=== PATIENT | male | born 1955 | race Caucasian/White ===

== ENCOUNTER → 2017-02-03 | Outpatient (CLI) | payer BC, MEDICARE ==
[~2017-02-03] MED LIST: ASPI-496 PO; ATOR40TA78 PO; CARV12.52 PO; CLOP75TA PO; FURO-93 PO; KRIL1CAP22 PO; LISI-167 PO; POTA10TA5 PO
== END | disposition home or self-care (01) ==
LOC: CVU 12:41
PROVIDERS: ATTEND Internal Medicine Cardiovascular Disease
DX: I25.5 Ischemic cardiomyopathy (principal); Z79.02 Long term (current) use of antithrombotics/antiplatelets; I10 Essential (primary) hypertension; I25.2 Old myocardial infarction; Z95.810 Presence of automatic (implantable) cardiac defibrillator
CPT/HCPCS: C8929

== ENCOUNTER → 2017-05-30 | Outpatient (CLI) | payer BC, MEDICARE | END | disposition home or self-care (01) | LOC: CFH 11:31 | PROVIDERS: ATTEND Internal Medicine Cardiovascular Disease | DX: I50.9 Heart failure, unspecified (principal); I51.7 Cardiomegaly; M47.894 Other spondylosis, thoracic region | CPT/HCPCS: 71020 ==

== ENCOUNTER → 2017-07-29 | Outpatient (CLI) | payer BC, MEDICARE | END | disposition home or self-care (01) | LOC: CFH 09:50 | PROVIDERS: ATTEND Nurse Practitioner Primary Care | DX: M25.462 Effusion, left knee (principal); I48.91 Unspecified atrial fibrillation; I10 Essential (primary) hypertension; I25.2 Old myocardial infarction ==

== ENCOUNTER → 2017-08-08 | Outpatient (CLI) | payer MEDICARE | END | disposition home or self-care (01) | LOC: CFH 08:28 | PROVIDERS: ATTEND Nurse Practitioner Primary Care | DX: M17.12 Unilateral primary osteoarthritis, left knee (principal) ==

== ENCOUNTER → 2018-06-30 | Outpatient (CLI) | payer MEDICARE | END | disposition home or self-care (01) | LOC: CFH 11:03 | PROVIDERS: ATTEND Nurse Practitioner Family | DX: I11.0 Hypertensive heart disease with heart failure (principal); I50.9 Heart failure, unspecified; I71.2 Thoracic aortic aneurysm, without rupture; Z95.0 Presence of cardiac pacemaker; Z85.51 Personal history of malignant neoplasm of bladder; Z85.820 Personal history of malignant melanoma of skin; Z87.891 Personal history of nicotine dependence | CPT/HCPCS: 71046 ==

== ENCOUNTER → 2018-09-15 | Outpatient (CLI) | payer MEDICARE ==
[~2018-09-15] MED LIST changes: +AMIO200T42 PO; +ASPI-515 PO; +DOCU-131 PO; +FURO40TA6 PO; +OMEG1CAP6 PO; +POTA20TA6 PO
== END | disposition home or self-care (01) ==
LOC: CFH 11:41
PROVIDERS: ATTEND Nurse Practitioner Primary Care
DX: R91.8 Other nonspecific abnormal finding of lung field (principal)
CPT/HCPCS: 71046

== ENCOUNTER 2018-09-16 03:17 | Inpatient (IN) | payer MEDICARE ==
[~2018-09-16] VITALS: Ht 188 cm; Wt 70.2 kg
[~2018-09-16 03:17] MED LIST changes: -AMIO200T42 PO; -ASPI-515 PO; -DOCU-131 PO; -FURO40TA6 PO; -OMEG1CAP6 PO; -POTA20TA6 PO
[2018-09-16 03:47] LABS: BASOPHILS # (AUTO) 0.03 x10^3/uL (0-0.1); BASOPHILS % (AUTO) 0 % (0-1); EOSINOPHILS % (AUTO) 3 % (1-7); LYMPHOCYTES # (AUTO) 1.61 x10^3/uL (1-3.4); LYMPHOCYTES % (AUTO) 21 % (22-44); MD NO; MEAN CORPUSCULAR HEMOGLOBIN 32.6 pg (27.5-34.5); MEAN CORPUSCULAR HGB CONC 34.2 g/dL (33.2-36.2); MEAN CORPUSCULAR VOLUME 95.3 fL (81-97); MEAN PLATELET VOLUME 9.5 fL (7.4-10.4); MONOCYTES # (AUTO) 0.55 x10^3/uL (0.2-0.8); MONOCYTES % (AUTO) 7 % (2-9); NEUTROPHILS # (AUTO) 5.32 x10^3/uL (1.8-6.8); NEUTROPHILS % (AUTO) 69 % (42-75); PLATELET COUNT 184 x10^3/uL (130-400); RED BLOOD COUNT 3.69 x10^6/uL (4.38-5.82); RED CELL DISTRIBUTION WIDTH 13.3 % (9.4-14.8)
[2018-09-16 04:01] LABS: ANION GAP 10 mmol/L (5-15); CALCIUM 7.9 mg/dL (8.5-10.1); CHLORIDE 112 mmol/L (98-107); CREATININE 0.83 mg/dL (0.7-1.3)
[2018-09-16] MEDS ORDERED: CEFTRIAXONE PMX 1GM/50ML 50 ML IV ONE (04:30)
[2018-09-16] MEDS ORDERED: AZITHROMYCIN 500 MG in SODIUM CHLORIDE 0.9% 250 ML IV ONE (04:30)
[2018-09-16] MEDS ORDERED: CEFTRIAXONE PMX 1GM/50ML 50 ML ONE (04:50)
[2018-09-16] MEDS ORDERED: hydrALAzine 20 MG/ML, 1ML IVPush PRN (05:00)
[2018-09-16] MEDS ORDERED: PROMETHAZINE 25 MG/ML, 1ML IM PRN (05:00)
[2018-09-16] MEDS ORDERED: GABAPENTIN 300 MG CAPSULE PO PRN (05:00)
[2018-09-16] MEDS ORDERED: OXYcodone IR 5MG TABLET PO PRN (05:00)
[2018-09-16] MEDS ORDERED: POLYETHYLENE GLYCOL 17 GM PACKET PO PRN (05:00)
[2018-09-16] MEDS ORDERED: DOCUSATE 100 MG CAPSULE PO PRN (05:00)
[2018-09-16] MEDS ORDERED: ACETAMINOPHEN 325 MG TABLET PO PRN (05:00)
[2018-09-16] MEDS ORDERED: ONDANSETRON ODT 4 MG PO PRN (05:00)
[2018-09-16] MEDS ORDERED: LABETALOL 5MG/ML, 20ML IVPush PRN (05:00)
[2018-09-16] MEDS ORDERED: morphine SULFATE 10 MG/ML, 1ML IVPush PRN (05:00)
[2018-09-16] MEDS ORDERED: ONDANSETRON 2MG/ML, 2ML IVPush PRN (05:00)
[2018-09-16] MEDS ORDERED: BISACODYL 10 MG SUPP PR PRN (05:00)
[2018-09-16 05:23] VITALS: BP 154/92
[2018-09-16 05:26] LABS: FREE T4 (FREE THYROXINE) 1.66 ng/dL (0.76-1.46); THYROID STIMULATING HORMONE 2.35 mIU/L (0.358-3.740)
[2018-09-16 05:27] LABS: HEMOGLOBIN A1C 5.7 % (4.2-6.3)
[2018-09-16] MEDS ORDERED: FUROSEMIDE 20 MG/2 ML IV ONE (05:30)
[2018-09-16] MEDS: ENOXAPARIN 40 MG/0.4 ML SQ SCH (06:18)
[2018-09-16 07:18] VITALS: BP 140/86
[2018-09-16 07:30] LABS: TROPONIN I < 0.015 ng/mL (0.000-0.045)
[2018-09-16] MEDS: FUROSEMIDE 20 MG/2 ML IV SCH ×2 (08:11→17:33)
[2018-09-16] MEDS: OMEGA-3/FISH OIL CAPSULE PO SCH (08:12)
[2018-09-16] MEDS: CLOPIDOGREL 75 MG TABLET PO SCH (08:13)
[2018-09-16] MEDS: CARVEDILOL 12.5 MG TABLET PO SCH ×2 (08:13→21:09)
[2018-09-16] MEDS: ASPIRIN 81 MG TABLET CHEW PO SCH (08:13)
[2018-09-16] MEDS: LISINOPRIL 10 MG TABLET PO SCH (08:13)
[2018-09-16 08:56] LABS: MICROSCOPIC NOT IND
[2018-09-16 08:58] LABS: CULTURE INDICATED? NO
[2018-09-16 11:26] VITALS: BP 114/74
[2018-09-16] MEDS ORDERED: OMNIPAQUE 350 MG/ML, 100ML BOTTLE ONE (11:30)
[2018-09-16 13:41] LABS: TROPONIN I < 0.015 ng/mL (0.000-0.045)
[2018-09-16 14:45] VITALS: BP 129/81
[2018-09-16] MEDS: POTASSIUM CHLORIDE 20 MEQ TAB.ER.PRT PO SCH (17:32)
[2018-09-16] MEDS: GUAIFENESIN/COD200MG-20MG/10ML LIQUID PO PRN ×2 (17:40→23:45)
[2018-09-16 20:12] VITALS: BP 145/83
[2018-09-16] MEDS: ATORVASTATIN 40 MG TABLET PO SCH (21:09)
[2018-09-17 02:53] VITALS: BP 119/73
[2018-09-17 05:43] LABS: BASOPHILS # (AUTO) 0.03 x10^3/uL (0-0.1); BASOPHILS % (AUTO) 0 % (0-1); EOSINOPHILS % (AUTO) 1 % (1-7); LYMPHOCYTES # (AUTO) 1.65 x10^3/uL (1-3.4); LYMPHOCYTES % (AUTO) 17 % (22-44); MD NO; MEAN CORPUSCULAR HEMOGLOBIN 32.6 pg (27.5-34.5); MEAN CORPUSCULAR HGB CONC 34.2 g/dL (33.2-36.2); MEAN CORPUSCULAR VOLUME 95.2 fL (81-97); MEAN PLATELET VOLUME 10.1 fL (7.4-10.4); MONOCYTES # (AUTO) 0.82 x10^3/uL (0.2-0.8); MONOCYTES % (AUTO) 8 % (2-9); NEUTROPHILS # (AUTO) 7.24 x10^3/uL (1.8-6.8); NEUTROPHILS % (AUTO) 74 % (42-75); PLATELET COUNT 215 x10^3/uL (130-400); RED BLOOD COUNT 3.94 x10^6/uL (4.38-5.82); RED CELL DISTRIBUTION WIDTH 13.4 % (9.4-14.8)
[2018-09-17 05:49] LABS: CHLORIDE 109 mmol/L (98-107)
[2018-09-17] MEDS: ENOXAPARIN 40 MG/0.4 ML SQ SCH (05:53)
[2018-09-17 05:55] LABS: ALANINE AMINOTRANSFERASE 36 U/L (12-78); ALBUMIN 3.1 g/dL (3.4-5.0); ALKALINE PHOSPHATASE 67 U/L (45-117); ANION GAP 12 mmol/L (5-15); BILIRUBIN,TOTAL 1.1 mg/dL (0.2-1.0); CALCIUM 8.3 mg/dL (8.5-10.1); CHOL/HDL RATIO 3.6; CHOLESTEROL, TOTAL 105 mg/dL (140-239); CREATININE 0.85 mg/dL (0.7-1.3); HDL CHOL % 28 % (26-37); HDL CHOLESTEROL (DIRECT) 29 mg/dL (40-60); LDL CHOLESTEROL,CALCULATED 63 mg/dL (54-169); LDL/HDL RATIO 2.2 (0.5-3.0); TOTAL PROTEIN 7.5 g/dL (6.4-8.2); TRIGLYCERIDES 65 mg/dL (50-200); VLDL CHOLESTEROL 13 mg/dL (0-25)
[2018-09-17 07:32] VITALS: BP 122/76
[2018-09-17] MEDS: FUROSEMIDE 20 MG/2 ML IV SCH (08:22)
[2018-09-17] MEDS ORDERED: AMIO200T42 PO (08:26)
[2018-09-17] MEDS: ASPIRIN 81 MG TABLET CHEW PO SCH (08:30)
[2018-09-17] MEDS: POTASSIUM CHLORIDE 20 MEQ TAB.ER.PRT PO SCH ×2 (08:30→17:43)
[2018-09-17] MEDS: CARVEDILOL 12.5 MG TABLET PO SCH ×2 (08:31→19:34)
[2018-09-17] MEDS: CLOPIDOGREL 75 MG TABLET PO SCH (08:32)
[2018-09-17] MEDS: LISINOPRIL 10 MG TABLET PO SCH (08:33)
[2018-09-17] MEDS: OMEGA-3/FISH OIL CAPSULE PO SCH (08:34)
[2018-09-17] MEDS ORDERED: FUROSEMIDE 20 MG/2 ML IV ONE (11:00)
[2018-09-17 11:43] VITALS: BP 129/81
[2018-09-17] MEDS: GUAIFENESIN/COD200MG-20MG/10ML LIQUID PO PRN ×3 (11:45→19:34)
[2018-09-17 14:26] VITALS: BP 132/79
[2018-09-17] MEDS: FUROSEMIDE 40 MG/4 ML IV SCH (17:43)
[2018-09-17 17:44] VITALS: BP 134/90
[2018-09-17 18:51] VITALS: BP 122/77
[2018-09-17] MEDS: AMIODARONE 200 MG TABLET PO SCH (19:34)
[2018-09-17] MEDS: ATORVASTATIN 40 MG TABLET PO SCH (19:34)
[2018-09-18 00:33] VITALS: BP_SYST 109; BP_SYST 136; BP_DIAS 68; BP_DIAS 77
[2018-09-18] MEDS: ENOXAPARIN 40 MG/0.4 ML SQ SCH (05:31)
[2018-09-18 05:52] LABS: ANION GAP 9 mmol/L (5-15); CALCIUM 8.9 mg/dL (8.5-10.1); CHLORIDE 106 mmol/L (98-107); CREATININE 0.87 mg/dL (0.7-1.3)
[2018-09-18 06:31] VITALS: BP 109/72
[2018-09-18] MEDS: FUROSEMIDE 40 MG/4 ML IV SCH ×2 (07:55→20:46)
[2018-09-18] MEDS: POTASSIUM CHLORIDE 20 MEQ TAB.ER.PRT PO SCH ×2 (07:56→20:46)
[2018-09-18] MEDS: CARVEDILOL 12.5 MG TABLET PO SCH ×2 (07:56→20:48)
[2018-09-18] MEDS: LISINOPRIL 10 MG TABLET PO SCH (07:56)
[2018-09-18] MEDS: CLOPIDOGREL 75 MG TABLET PO SCH (07:56)
[2018-09-18] MEDS: ASPIRIN 81 MG TABLET CHEW PO SCH (07:56)
[2018-09-18] MEDS: OMEGA-3/FISH OIL CAPSULE PO SCH (07:57)
[2018-09-18 08:05] VITALS: BP 114/75
[2018-09-18 12:38] VITALS: BP 111/75
[2018-09-18 17:55] VITALS: BP 116/72
[2018-09-18 20:27] VITALS: BP 109/69
[2018-09-18] MEDS: AMIODARONE 200 MG TABLET PO SCH (20:48)
[2018-09-18] MEDS: ATORVASTATIN 40 MG TABLET PO SCH (21:04)
[2018-09-18] MEDS: GUAIFENESIN/COD200MG-20MG/10ML LIQUID PO PRN (21:40)
[2018-09-19 01:17] VITALS: BP 91/54
[2018-09-19 01:34] VITALS: BP 91/54
[2018-09-19 01:35] VITALS: BP 93/61
[2018-09-19 05:06] VITALS: BP 106/74
[2018-09-19] MEDS: ENOXAPARIN 40 MG/0.4 ML SQ SCH (05:06)
[2018-09-19 07:49] VITALS: BP 111/65
[2018-09-19] MEDS: LISINOPRIL 10 MG TABLET PO SCH (09:00)
[2018-09-19] MEDS: CLOPIDOGREL 75 MG TABLET PO SCH (09:14)
[2018-09-19] MEDS: OMEGA-3/FISH OIL CAPSULE PO SCH (09:14)
[2018-09-19] MEDS: POTASSIUM CHLORIDE 20 MEQ TAB.ER.PRT PO SCH (09:14)
[2018-09-19] MEDS: CARVEDILOL 12.5 MG TABLET PO SCH (09:14)
[2018-09-19] MEDS: FUROSEMIDE 40 MG/4 ML IV SCH (09:14)
[2018-09-19] MEDS: ASPIRIN 81 MG TABLET CHEW PO SCH (09:15)
[2018-09-19] MEDS ORDERED: DOCU-131 PO (11:00)
[2018-09-19] MEDS ORDERED: FURO40TA6 PO (11:00)
[2018-09-19] MEDS ORDERED: ASPI-515 PO (11:00)
[2018-09-19] MEDS ORDERED: POTA20TA6 PO (11:00)
[2018-09-19] MEDS ORDERED: CARV12.52 PO (11:00)
[2018-09-19] MEDS ORDERED: OMEG1CAP6 PO (11:00)
[2018-09-19] MEDS ORDERED: CLOP75TA PO (11:00)
[2018-09-19] MEDS ORDERED: AMIO200T42 PO (11:00)
[2018-09-19] MEDS ORDERED: ATOR40TA78 PO (11:00)
[2018-09-19] MEDS ORDERED: LISI-167 PO (11:00)
== END 2018-09-19 15:14 | disposition home or self-care (01) | DRG 291 ==
LOC: ED 03:39 → EDIP 04:29 → 4NOR 05:07 → 5SO 08:04
PROVIDERS: ADMIT Internal Medicine; ATTEND Internal Medicine
DX: I11.0 Hypertensive heart disease with heart failure (principal); J96.01 Acute respiratory failure with hypoxia; J18.1 Lobar pneumonia, unspecified organism; E44.0 Moderate protein-calorie malnutrition; Z68.1 Body mass index [BMI] 19.9 or less, adult; I50.23 Acute on chronic systolic (congestive) heart failure; D64.9 Anemia, unspecified; E78.5 Hyperlipidemia, unspecified; F12.90 Cannabis use, unspecified, uncomplicated; I08.0 Rheumatic disorders of both mitral and aortic valves; I25.10 Atherosclerotic heart disease of native coronary artery without angina pectoris; Z85.51 Personal history of malignant neoplasm of bladder; Z95.5 Presence of coronary angioplasty implant and graft; Z87.891 Personal history of nicotine dependence; Z95.810 Presence of automatic (implantable) cardiac defibrillator; Z79.82 Long term (current) use of aspirin; Z79.899 Other long term (current) drug therapy
CPT/HCPCS: 36415; 71045; 71275; 80048; 80053; 80061; 81003; 82040; 83036; 83735; 83880; 84439; 84443; 84484; 85025; 87070; 87205; 93005; C8929; G0378; J0456; J0696; J1650; J1940; Q9957; Q9967; J7050

== ENCOUNTER → 2018-09-29 | Outpatient (CLI) | payer MEDICARE ==
[~2018-09-29] MED LIST changes: +AMIO200T42 PO; +ASPI-515 PO; +DOCU-131 PO; +FURO40TA6 PO; +OMEG1CAP6 PO; +POTA20TA6 PO; +REGADENOSON 0.4 MG/5 ML SYRINGE ONE
== END | disposition home or self-care (01) ==
LOC: CFH 07:38
PROVIDERS: ATTEND Nurse Practitioner Family
DX: I21.09 ST elevation (STEMI) myocardial infarction involving other coronary artery of anterior wall (principal); I25.5 Ischemic cardiomyopathy; I08.0 Rheumatic disorders of both mitral and aortic valves; I25.10 Atherosclerotic heart disease of native coronary artery without angina pectoris; I10 Essential (primary) hypertension
CPT/HCPCS: 78452; 93017; 93306; A9502; J2785

== ENCOUNTER → 2019-01-12 | Outpatient (CLI) | payer MEDICARE ==
[~2019-01-12] MED LIST changes: -REGADENOSON 0.4 MG/5 ML SYRINGE ONE
== END | disposition home or self-care (01) ==
LOC: CVU 13:15
PROVIDERS: ATTEND Internal Medicine Cardiovascular Disease
DX: I35.1 Nonrheumatic aortic (valve) insufficiency (principal); I11.0 Hypertensive heart disease with heart failure; I50.9 Heart failure, unspecified; I25.10 Atherosclerotic heart disease of native coronary artery without angina pectoris; Z87.891 Personal history of nicotine dependence
CPT/HCPCS: C8929; Q9957

== ENCOUNTER → 2019-09-23 | Outpatient (CLI) | payer MEDICARE | END | disposition home or self-care (01) | LOC: CFH 09:41 | PROVIDERS: ATTEND Internal Medicine Cardiovascular Disease | DX: I08.0 Rheumatic disorders of both mitral and aortic valves (principal); M47.814 Spondylosis without myelopathy or radiculopathy, thoracic region; I25.2 Old myocardial infarction; I11.0 Hypertensive heart disease with heart failure; I25.5 Ischemic cardiomyopathy; I25.10 Atherosclerotic heart disease of native coronary artery without angina pectoris; E11.9 Type 2 diabetes mellitus without complications; E78.00 Pure hypercholesterolemia, unspecified; F12.10 Cannabis abuse, uncomplicated; I47.2 Ventricular tachycardia; I50.22 Chronic systolic (congestive) heart failure; I71.2 Thoracic aortic aneurysm, without rupture; Z51.81 Encounter for therapeutic drug level monitoring; Z95.810 Presence of automatic (implantable) cardiac defibrillator; Z87.891 Personal history of nicotine dependence | CPT/HCPCS: 71046 ==

== ENCOUNTER → 2019-12-17 | Outpatient (CLI) | payer MEDICARE | END | disposition home or self-care (01) | LOC: CFH 08:27 | PROVIDERS: ATTEND Internal Medicine Cardiovascular Disease | DX: I35.1 Nonrheumatic aortic (valve) insufficiency (principal); I71.2 Thoracic aortic aneurysm, without rupture; I25.5 Ischemic cardiomyopathy; I25.2 Old myocardial infarction; I10 Essential (primary) hypertension; E78.5 Hyperlipidemia, unspecified | CPT/HCPCS: 93306 ==

== ENCOUNTER 2020-03-23 10:56 | Day surgery (SDC) | payer MEDICARE ==
[~2020-03-23] VITALS: Ht 188 cm; Wt 110.8 kg
[~2020-03-23 10:56] MED LIST changes: +LIDOCAINE/PF 1%-EPI 1:200K, 30 ML ONE
[2020-03-23] MEDS ORDERED: LACTATED RINGERS 1,000 ML IV SCH (11:23)
[2020-03-23 11:26] VITALS: BP 121/77
[2020-03-23] MEDS ORDERED: CLOP75TA PO (11:26)
[2020-03-23] MEDS ORDERED: FURO-92 PO (11:26)
[2020-03-23] MEDS ORDERED: CARV12.52 PO (11:26)
[2020-03-23] MEDS ORDERED: AMIO100T4 PO (11:26)
[2020-03-23] MEDS ORDERED: POTA20TA89 PO (11:26)
[2020-03-23] MEDS ORDERED: ATOR40TA78 PO (11:26)
[2020-03-23] MEDS ORDERED: SACU1TAB7 PO (11:26)
[2020-03-23] MEDS ORDERED: ASPI-496 PO (11:26)
[2020-03-23] MEDS ORDERED: CLOP75TA52 PO (11:26)
[2020-03-23] MEDS ORDERED: CHLORHEXIDINE 15 ML UDC MM ONE (11:30)
[2020-03-23] MEDS ORDERED: CHLORHEXIDINE 15 ML UDC ONE (11:34)
[2020-03-23] MEDS ORDERED: LIDOCAINE-MPF 1%, 2ML INFIL ONE (12:00)
[2020-03-23] MEDS ORDERED: FENTANYL PF 250 MCG/5ML ONE (12:02)
[2020-03-23] MEDS ORDERED: MIDAZOLAM 1 MG/ML, 2ML ONE (12:02)
[2020-03-23] MEDS ORDERED: morphine SULFATE/PF 1 MG/ML, 10ML ONE (12:29)
[2020-03-23] MEDS ORDERED: ROCURONIUM 10 MG/ML,10ML ONE (12:52)
[2020-03-23] MEDS ORDERED: ACETAMINOPHEN 325 MG TABLET PO PRN (13:00)
[2020-03-23] MEDS ORDERED: OXYcodone 5 MG/5 ML ORAL.SOL UDC PO PRN (13:00)
[2020-03-23] MEDS ORDERED: PROMETHAZINE 25 MG/ML, 1ML IVPush PRN (13:00)
[2020-03-23] MEDS ORDERED: hydrALAzine 20 MG/ML, 1ML IV PRN (13:00)
[2020-03-23] MEDS ORDERED: LABETALOL 5MG/ML, 20ML IV PRN (13:00)
[2020-03-23] MEDS ORDERED: ONDANSETRON 2MG/ML, 2ML IVPush PRN (13:00)
[2020-03-23] MEDS ORDERED: PROMETHAZINE 25 MG SUPP PR PRN (13:00)
[2020-03-23] MEDS ORDERED: FENTANYL PF 100 MCG/2ML IV PRN (13:00)
[2020-03-23] MEDS ORDERED: PROPOFOL 10 MG/ML, 20ML ONE (13:39)
[2020-03-23] MEDS ORDERED: CEFAZOLIN 1,000 MG ONE (13:39)
[2020-03-23] MEDS ORDERED: ONDANSETRON 2MG/ML, 2ML ONE (13:39)
[2020-03-23] MEDS ORDERED: DEXAMETHASONE 4 MG/ML, 1ML ONE (13:39)
[2020-03-23] MEDS ORDERED: ACETAMINOPHEN 650 MG/20.3 ML UDC ONE (14:08)
[2020-03-23] MEDS ORDERED: KETOROLAC 30 MG/1 ML ONE (14:09)
[2020-03-23] MEDS ORDERED: OXYcodone 5 MG/5 ML ORAL.SOL UDC ONE (14:09)
[2020-03-23] MEDS ORDERED: HYDROmorphone 1 MG/ML, 1ML INJ ONE (14:17)
[2020-03-23] MEDS: HYDROmorphone 1 MG/ML, 1ML INJ IVPush PRN ×2 (14:19→14:28)
[2020-03-23] MEDS ORDERED: KETOROLAC 30 MG/1 ML IVPush PRN (14:30)
== END 2020-03-23 16:20 | disposition home or self-care (01) ==
LOC: OUT 10:56
PROVIDERS: ATTEND Orthopaedic Surgery
DX: S83.232A Complex tear of medial meniscus, current injury, left knee, initial encounter (principal); S83.282A Other tear of lateral meniscus, current injury, left knee, initial encounter; M22.42 Chondromalacia patellae, left knee; M67.262 Synovial hypertrophy, not elsewhere classified, left lower leg; M65.862 Other synovitis and tenosynovitis, left lower leg; M25.462 Effusion, left knee; I25.2 Old myocardial infarction; I42.9 Cardiomyopathy, unspecified; Z95.0 Presence of cardiac pacemaker; W01.198A Fall on same level from slipping, tripping and stumbling with subsequent striking against other object, initial encounter; Y93.89 Activity, other specified; Y92.89 Other specified places as the place of occurrence of the external cause; Y99.8 Other external cause status
CPT/HCPCS: 29880; 93005; J0690; J1100; J1170; J1885; J2250; J2274; J2405; J2704; J3010; J3490; J7120

== ENCOUNTER → 2020-04-19 | Outpatient (CLI) | payer MEDICARE ==
[~2020-04-19] MED LIST changes: +AMIO100T4 PO; +CLOP75TA52 PO; +FURO-92 PO; -LIDOCAINE/PF 1%-EPI 1:200K, 30 ML ONE; +POTA20TA89 PO; +SACU1TAB7 PO
== END | disposition home or self-care (01) ==
LOC: RAD 13:14
PROVIDERS: ATTEND Internal Medicine
DX: J18.9 Pneumonia, unspecified organism (principal); M47.814 Spondylosis without myelopathy or radiculopathy, thoracic region; I11.0 Hypertensive heart disease with heart failure; I48.91 Unspecified atrial fibrillation; E78.1 Pure hyperglyceridemia; I25.10 Atherosclerotic heart disease of native coronary artery without angina pectoris; I50.1 Left ventricular failure, unspecified; Z95.0 Presence of cardiac pacemaker
CPT/HCPCS: 71046

== ENCOUNTER → 2020-07-04 | Outpatient (CLI) | payer MEDICARE ==
[~2020-07-04] MED LIST changes: +REGADENOSON 0.4 MG/5 ML SYRINGE ONE
== END | disposition home or self-care (01) ==
LOC: CFH 11:51
PROVIDERS: ATTEND Internal Medicine Cardiovascular Disease
DX: I25.10 Atherosclerotic heart disease of native coronary artery without angina pectoris (principal); I25.5 Ischemic cardiomyopathy; I10 Essential (primary) hypertension; I25.2 Old myocardial infarction
CPT/HCPCS: 78452; 93017; A9502; J2785

== ENCOUNTER → 2020-11-09 | Outpatient (CLI) | payer MEDICARE ==
[~2020-11-09] MED LIST changes: +MELOXICAM PO; -REGADENOSON 0.4 MG/5 ML SYRINGE ONE; +SACU1TAB4 PO
[2020-11-09 11:11] LABS: BASOPHILS % (AUTO) 1 % (0-1); EOSINOPHILS % (AUTO) 3 % (1-7); LYMPHOCYTES % (AUTO) 29 % (22-44); MEAN CORPUSCULAR HEMOGLOBIN 32.5 pg (27.5-34.5); MEAN CORPUSCULAR HGB CONC 34.1 g/dL (33.2-36.2); MEAN PLATELET VOLUME 10.4 fL (7.4-10.4); MONOCYTES % (AUTO) 9 % (2-9); NEUTROPHILS % (AUTO) 59 % (42-75); PLATELET COUNT 168 x10^3/uL (130-400); RED BLOOD COUNT 4.43 x10^6/uL (4.38-5.82); RED CELL DISTRIBUTION WIDTH 13.1 % (9.4-14.8)
[2020-11-09 11:12] LABS: MD NO
[2020-11-09 11:17] LABS: PROTHROMBIN TIME 10.6 Seconds (9.6-11.5)
[2020-11-09 11:21] LABS: ALANINE AMINOTRANSFERASE 41 U/L (12-78); ALBUMIN 3.8 g/dL (3.4-5.0); ANION GAP 4 mmol/L (5-15); CALCIUM 9.2 mg/dL (8.5-10.1); CHLORIDE 111 mmol/L (98-107)
[2020-11-09 11:24] LABS: ALKALINE PHOSPHATASE 76 U/L (45-117); BILIRUBIN,TOTAL 0.6 mg/dL (0.2-1.0); TOTAL PROTEIN 7.5 g/dL (6.4-8.2)
== END | disposition home or self-care (01) ==
LOC: STAR 09:58
PROVIDERS: ATTEND Orthopaedic Surgery
DX: Z01.810 Encounter for preprocedural cardiovascular examination (principal); Z01.818 Encounter for other preprocedural examination; M17.12 Unilateral primary osteoarthritis, left knee; M25.562 Pain in left knee; I49.3 Ventricular premature depolarization; Z20.828 Contact with and (suspected) exposure to other viral communicable diseases; Z79.01 Long term (current) use of anticoagulants
CPT/HCPCS: 80053; 83036; 85025; 85610; 85730; 87081; 87147; 87635; 93005

== ENCOUNTER → 2020-12-21 | Outpatient (CLI) | payer MEDICARE ==
[~2020-12-21] MED LIST changes: -ASPI-515 PO; +ASPI-963 PO
[2020-12-21 10:27] LABS: BASOPHILS % (AUTO) 1 % (0-1); EOSINOPHILS % (AUTO) 2 % (1-7); LYMPHOCYTES % (AUTO) 31 % (22-44); MEAN CORPUSCULAR HEMOGLOBIN 32.9 pg (27.5-34.5); MEAN CORPUSCULAR HGB CONC 34.5 g/dL (33.2-36.2); MEAN PLATELET VOLUME 10.7 fL (7.4-10.4); MONOCYTES % (AUTO) 8 % (2-9); NEUTROPHILS % (AUTO) 58 % (42-75); PLATELET COUNT 174 x10^3/uL (130-400); RED BLOOD COUNT 4.42 x10^6/uL (4.38-5.82); RED CELL DISTRIBUTION WIDTH 13.7 % (9.4-14.8)
[2020-12-21 10:29] LABS: MD NO
[2020-12-21 10:38] LABS: ALANINE AMINOTRANSFERASE 36 U/L (12-78); ALBUMIN 3.9 g/dL (3.4-5.0); ANION GAP 5 mmol/L (5-15); CALCIUM 8.7 mg/dL (8.5-10.1); CHLORIDE 112 mmol/L (98-107)
[2020-12-21 10:39] LABS: INTERNATIONAL NORMALIZED RATIO 1.01 (0.93-1.1); PROTHROMBIN TIME 10.8 Seconds (9.6-11.5)
[2020-12-21 10:40] LABS: ALKALINE PHOSPHATASE 62 U/L (45-117); BILIRUBIN,TOTAL 0.6 mg/dL (0.2-1.0); TOTAL PROTEIN 7.6 g/dL (6.4-8.2)
== END | disposition home or self-care (01) ==
LOC: STAR 09:04
PROVIDERS: ATTEND Orthopaedic Surgery
DX: Z01.810 Encounter for preprocedural cardiovascular examination (principal); Z01.818 Encounter for other preprocedural examination; M17.12 Unilateral primary osteoarthritis, left knee; M25.562 Pain in left knee; I21.09 ST elevation (STEMI) myocardial infarction involving other coronary artery of anterior wall; Z20.822 Contact with and (suspected) exposure to COVID-19; Z79.01 Long term (current) use of anticoagulants
CPT/HCPCS: 80053; 83036; 85025; 85610; 85730; 87081; 87635; 93005

== ENCOUNTER 2020-12-27 08:34 | Day surgery (SDC) | payer MEDICARE ==
[~2020-12-27] VITALS: Ht 188 cm; Wt 116.4 kg
[~2020-12-27 08:34] MED LIST changes: +ACETAMINOPHEN 650 MG/20.3 ML UDC PO PRN; +BISACODYL 10 MG SUPP PR PRN; +CEFAZOLIN PMX 2GM/50ML 50 ML IVPB SCH; +DIPHENHYDRAMINE 25 MG CAPSULE PO PRN; +EPINEPHRINE 1 MG/ML, 1ML ONE; +HYDROcodone/APAP 5/325 TABLET PO PRN; +HYDROmorphone 1 MG/ML, 1ML INJ IV PRN; +KETOROLAC 60 MG/2 ML ONE; +MAGNESIUM HYDROXIDE 8%, 30ML UDC PO PRN; +NS + 20MEQ KCL 1,000 ML IV SCH; +ONDANSETRON 2MG/ML, 2ML IV PRN; +ONDANSETRON 4 MG TABLET PO PRN; +OXYcodone IR 5MG TABLET PO PRN; +ROPIvacaine/PF 0.5%, 20 ML ONE; +ROPIvacaine/PF 0.5%, 30 ML ONE; +SENNA/DOCUSATE TABLET PO PRN; +SODIUM CHLORIDE 0.9% 50 ML ONE; +TRANEXAMIC ACID 100 MG/ML, 10ML ONE; +VANCOMYCIN 1,000 MG ONE; +ZOLPIDEM 5MG TABLET PO PRN
[2020-12-27] MEDS ORDERED: FENTANYL PF 250 MCG/5ML ONE (08:55)
[2020-12-27] MEDS ORDERED: MIDAZOLAM 1 MG/ML, 2ML ONE (08:55)
[2020-12-27] MEDS ORDERED: LABETALOL 5MG/ML, 20ML IV PRN (09:00)
[2020-12-27] MEDS ORDERED: TEMPLATE NON-FORMULARY MED. (Sacubitril/Valsartan (Entresto 97 mg-103 mg Tablet) 1 TAB) PO SCH (09:00)
[2020-12-27] MEDS ORDERED: ALBUTEROL SULFATE 2.5 MG/3 ML NPPB PRN (09:00)
[2020-12-27] MEDS ORDERED: OXYcodone 5 MG/5 ML ORAL.SOL UDC PO PRN (09:00)
[2020-12-27] MEDS ORDERED: DOCUSATE 100 MG CAPSULE PO SCH (09:00)
[2020-12-27] MEDS ORDERED: PROMETHAZINE 25 MG/ML, 1ML IVPush PRN (09:00)
[2020-12-27] MEDS ORDERED: FUROSEMIDE 40 MG TABLET PO SCH (09:00)
[2020-12-27] MEDS ORDERED: hydrALAzine 20 MG/ML, 1ML IV PRN (09:00)
[2020-12-27] MEDS ORDERED: MEPERIDINE/PF 25MG/0.5ML IVPush PRN (09:00)
[2020-12-27] MEDS ORDERED: CARVEDILOL 12.5 MG TABLET PO SCH (09:00)
[2020-12-27] MEDS ORDERED: HYDROmorphone 1 MG/ML, 1ML INJ IVPush PRN (09:00)
[2020-12-27 09:02] VITALS: BP 106/73
[2020-12-27] MEDS ORDERED: CHLORHEXIDINE 15 ML UDC ONE (09:17)
[2020-12-27] MEDS ORDERED: CHLORHEXIDINE 15 ML UDC MM ONE (09:30)
[2020-12-27] MEDS ORDERED: ACETAMINOPHEN 500 MG TABLET PO ONE (09:30)
[2020-12-27] MEDS ORDERED: GABAPENTIN 300 MG CAPSULE PO ONE (09:30)
[2020-12-27] MEDS ORDERED: LACTATED RINGERS 1,000 ML IV SCH (09:30)
[2020-12-27] MEDS ORDERED: PROPOFOL 10 MG/ML, 20ML ONE (10:33)
[2020-12-27] MEDS ORDERED: ONDANSETRON 2MG/ML, 2ML ONE (10:33)
[2020-12-27] MEDS ORDERED: CEFAZOLIN 1,000 MG ONE (10:33)
[2020-12-27] MEDS ORDERED: LIDOCAINE-MPF 2% ,5ML ONE (10:34)
[2020-12-27] MEDS ORDERED: EPINEPHRINE 1 MG/ML, 1ML ONE (10:34)
[2020-12-27] MEDS: FENTANYL PF 100 MCG/2ML IV PRN ×3 (11:10→11:35)
[2020-12-27] MEDS ORDERED: FENTANYL PF 100 MCG/2ML ONE (11:13)
[2020-12-27] MEDS ORDERED: OXYcodone 5 MG/5 ML ORAL.SOL UDC ONE ×2 (11:13→11:30)
[2020-12-27] MEDS ORDERED: ASPIRIN 81 MG TABLET EC PO SCH (18:00)
[2020-12-28] MEDS ORDERED: DEXAMETHASONE 4 MG/ML, 1ML IVPush SCH (06:00)
== END 2020-12-27 15:45 | disposition home or self-care (01) ==
LOC: OUT 08:34
PROVIDERS: ATTEND Orthopaedic Surgery
DX: M17.12 Unilateral primary osteoarthritis, left knee (principal); M25.762 Osteophyte, left knee; G89.18 Other acute postprocedural pain; I11.0 Hypertensive heart disease with heart failure; I50.9 Heart failure, unspecified; I25.2 Old myocardial infarction; E78.5 Hyperlipidemia, unspecified; E66.9 Obesity, unspecified; Z79.1 Long term (current) use of non-steroidal anti-inflammatories (NSAID); Z87.891 Personal history of nicotine dependence; Z98.890 Other specified postprocedural states; Z99.81 Dependence on supplemental oxygen; Z82.49 Family history of ischemic heart disease and other diseases of the circulatory system
CPT/HCPCS: 27447; 64447; 97110; 97161; 97165; C1713; C1776; J0171; J0690; J1885; J2250; J2405; J2704; J2795; J3010; J3370; J7120

== ENCOUNTER 2021-03-05 09:45 | Outpatient (CLI) | payer MEDICARE ==
[~2021-03-05 09:45] MED LIST changes: -ACETAMINOPHEN 650 MG/20.3 ML UDC PO PRN; -BISACODYL 10 MG SUPP PR PRN; -CEFAZOLIN PMX 2GM/50ML 50 ML IVPB SCH; -DIPHENHYDRAMINE 25 MG CAPSULE PO PRN; -EPINEPHRINE 1 MG/ML, 1ML ONE; -HYDROcodone/APAP 5/325 TABLET PO PRN; -HYDROmorphone 1 MG/ML, 1ML INJ IV PRN; -KETOROLAC 60 MG/2 ML ONE; -MAGNESIUM HYDROXIDE 8%, 30ML UDC PO PRN; -NS + 20MEQ KCL 1,000 ML IV SCH; -ONDANSETRON 2MG/ML, 2ML IV PRN; -ONDANSETRON 4 MG TABLET PO PRN; -OXYcodone IR 5MG TABLET PO PRN; -ROPIvacaine/PF 0.5%, 20 ML ONE; -ROPIvacaine/PF 0.5%, 30 ML ONE; -SENNA/DOCUSATE TABLET PO PRN; -SODIUM CHLORIDE 0.9% 50 ML ONE; -TRANEXAMIC ACID 100 MG/ML, 10ML ONE; -VANCOMYCIN 1,000 MG ONE; -ZOLPIDEM 5MG TABLET PO PRN
== END 2021-03-05 23:59 | disposition home or self-care (01) ==
LOC: CVU 09:45
PROVIDERS: ATTEND Internal Medicine Cardiovascular Disease
DX: I35.1 Nonrheumatic aortic (valve) insufficiency (principal); I25.10 Atherosclerotic heart disease of native coronary artery without angina pectoris
CPT/HCPCS: C8929; Q9957

== ENCOUNTER 2021-04-26 10:52 | Day surgery (SDC) | payer MEDICARE ==
[~2021-04-26] VITALS: Ht 188 cm; Wt 104.5 kg
[2021-04-26] MEDS ORDERED: SODIUM CHLORIDE 0.9% 1,000 ML IV SCH (12:00)
[2021-04-26] MEDS ORDERED: ASPI81TA45 PO (12:04)
[2021-04-26 12:09] VITALS: BP 108/70
[2021-04-26] MEDS ORDERED: FENTANYL PF 100 MCG/2ML ONE (12:33)
[2021-04-26] MEDS ORDERED: CEFAZOLIN PMX 1GM/50ML 50 ML ONE (12:33)
[2021-04-26] MEDS ORDERED: MIDAZOLAM 1 MG/ML, 5ML ONE (12:33)
[2021-04-26] MEDS ORDERED: CEFAZOLIN 1,000 MG ONE (12:34)
[2021-04-26] MEDS ORDERED: LIDOCAINE 2%, 20ML ONE (12:34)
[2021-04-26 12:53] LABS: BASOPHILS % (AUTO) 1 % (0-1); EOSINOPHILS % (AUTO) 3 % (1-7); LYMPHOCYTES % (AUTO) 31 % (22-44); MEAN CORPUSCULAR HGB CONC 33.7 g/dL (33.2-36.2); MEAN PLATELET VOLUME 10.3 fL (7.4-10.4); MONOCYTES % (AUTO) 8 % (2-9); NEUTROPHILS % (AUTO) 58 % (42-75); PLATELET COUNT 181 x10^3/uL (130-400); RED CELL DISTRIBUTION WIDTH 14.6 % (9.4-14.8)
[2021-04-26 13:02] LABS: ANION GAP 5 mmol/L (5-15); CALCIUM 8.7 mg/dL (8.5-10.1); CHLORIDE 109 mmol/L (98-107); CREATININE 1.02 mg/dL (0.7-1.3)
[2021-04-26 13:03] LABS: INTERNATIONAL NORMALIZED RATIO 1.07 (0.93-1.1); PROTHROMBIN TIME 11.4 Seconds (9.6-11.5)
== END 2021-04-26 15:11 | disposition home or self-care (01) ==
LOC: CACL 10:52
PROVIDERS: ATTEND Internal Medicine Cardiovascular Disease
DX: Z45.02 Encounter for adjustment and management of automatic implantable cardiac defibrillator (principal); I25.10 Atherosclerotic heart disease of native coronary artery without angina pectoris; I25.5 Ischemic cardiomyopathy; I47.2 Ventricular tachycardia; I11.0 Hypertensive heart disease with heart failure; I50.22 Chronic systolic (congestive) heart failure; I08.0 Rheumatic disorders of both mitral and aortic valves; I25.2 Old myocardial infarction; E78.00 Pure hypercholesterolemia, unspecified; E11.9 Type 2 diabetes mellitus without complications; F12.10 Cannabis abuse, uncomplicated; Z79.82 Long term (current) use of aspirin; Z79.899 Other long term (current) drug therapy
CPT/HCPCS: 33263; 36415; 71046; 80048; 85025; 85610; 93005; 99156; 99157; C1721; J0690; J2250; J3010